=== PATIENT | female | born 1945 | race Caucasian/White ===

== ENCOUNTER → 2016-08-10 | Outpatient (REF) | payer MEDICARE, BC, OTHER ==
[~2016-08-10] MED LIST: AMLO5TAB2 PO; ASPI325T PO; LIPI20TA PO; LOSA25TA8 PO; MULTCAP PO; OMEP40CA2 PO; calcium OR; vicodin OR
== END ==
LOC: M LABDRAW1 14:44
PROVIDERS: ATTEND Internal Medicine Endocrinology, Diabetes & Metabolism
DX: M81.0 Age-related osteoporosis without current pathological fracture (principal)

== ENCOUNTER → 2016-09-10 | Outpatient (CLI) | payer MEDICARE, BC, OTHER ==
--- NOTE | 2016-09-10 11:26 | REP ---
Urinary tract sonography: History: Chronic kidney disease stage IV. Findings: Scanning at the level of the urinary bladder shows smooth bladder [place]. Renal cortical echogenicity pattern is increased bilaterally consistent with chronic medical renal disease. Bilateral renal cortical atrophy is seen. The right kidney measures 7.1 x 4.2 x 3.2 cm. Left renal dimensions are 8.3 x 4.1 x 3.7 cm. There is a 0.6 cm cyst in the upper pole of the left kidney. No other cyst is seen. No mass is observed. No hydronephrosis seen on either side. No calculus is seen. Impression: Increased renal cortical echogenicity and bilateral renal cortical atrophy. Findings are consistent with chronic medical renal disease. No hydronephrosis is seen. Renal length measurements have decreased in the interval since the October 30, 2010 prior study. Signed by Justin Garner MD 09/10/2016 12:56 P
== END ==
LOC: M RAD 10:34
PROVIDERS: ATTEND Internal Medicine Nephrology
DX: N18.4 Chronic kidney disease, stage 4 (severe) (principal)

== ENCOUNTER → 2017-08-23 | Outpatient (REF) | payer MEDICARE, BC, OTHER ==
[2017-08-25 12:02] LABS: CALCIUM LEVEL 8.4 MG/DL (8.8-10.2)
== END ==
LOC: M LABDRAW1 10:47
DX: M81.0 Age-related osteoporosis without current pathological fracture (principal)
CPT/HCPCS: 82310

== ENCOUNTER → 2017-09-03 | Outpatient (REF) | payer MEDICARE, BC, OTHER | LOC: M LABDRAW1 10:00 | DX: E83.51 Hypocalcemia (principal) | CPT/HCPCS: 82310 ==

== ENCOUNTER → 2017-09-12 | Outpatient (CLI) | payer MEDICARE, BC, OTHER | LOC: M WUC 09:51 | DX: J20.9 Acute bronchitis, unspecified (principal) | CPT/HCPCS: 71046 ==

== ENCOUNTER → 2017-09-15 | Outpatient (CLI) | payer MEDICARE, BC, OTHER | LOC: M WUC 11:29 | DX: M54.5 Low back pain (principal) | CPT/HCPCS: 72100 ==

== ENCOUNTER → 2018-10-03 | Outpatient (REF) | payer MEDICARE, BC, OTHER ==
[~2018-10-03] MED LIST changes: -AMLO5TAB2 PO; +AMLO5TAB6 PO; +ASPI-1 PO; -ASPI325T PO; +LOSA25TA14 PO; -LOSA25TA8 PO
[2018-10-03 14:17] LABS: CALCIUM LEVEL 9.4 MG/DL (8.8-10.2)
[2018-10-03 14:24] LABS: TOTAL 25(OH) VITAMIN D 36.8 NG/ML (30.0-100.0)
== END ==
LOC: M LABDRAW1 12:08
PROVIDERS: ATTEND Internal Medicine Endocrinology, Diabetes & Metabolism
DX: M81.0 Age-related osteoporosis without current pathological fracture (principal); E55.9 Vitamin D deficiency, unspecified

== ENCOUNTER → 2019-09-18 | Outpatient (REF) | payer MEDICARE, OTHER ==
[~2019-09-18] MED LIST changes: +AMLO1TAB24 PO; -AMLO5TAB6 PO; -OMEP40CA2 PO; +OMEP40CA97 PO
[2019-09-18 18:10] LABS: PERCENT SATURATION 32.4 % (13.2-45.0)
== END ==
LOC: M LAB REF 16:40
PROVIDERS: ATTEND Internal Medicine Nephrology
DX: D50.9 Iron deficiency anemia, unspecified (principal)

== ENCOUNTER → 2019-10-18 | Outpatient (REF) | payer MEDICARE, OTHER ==
[2019-10-18 15:05] LABS: CALCIUM LEVEL 9.1 MG/DL (8.8-10.2)
[2019-10-18 16:29] LABS: TOTAL 25(OH) VITAMIN D 32.4 NG/ML (30.0-100.0)
== END ==
LOC: M LABDRAWP 13:53
PROVIDERS: ATTEND Internal Medicine Endocrinology, Diabetes & Metabolism
DX: M81.0 Age-related osteoporosis without current pathological fracture (principal)

== ENCOUNTER → 2020-12-24 | Outpatient (CLI) | payer MEDICARE, BC, OTHER ==
[~2020-12-24] MED LIST changes: +OMEP40CA4 PO; -OMEP40CA97 PO
[2020-12-24 14:11] LABS: CALCIUM LEVEL 8.7 MG/DL (8.8-10.2)
[2020-12-24 14:27] LABS: TOTAL 25(OH) VITAMIN D 66.1 NG/ML (30.0-100.0)
== END ==
LOC: M PLALAB 10:56
PROVIDERS: ATTEND Internal Medicine Endocrinology, Diabetes & Metabolism
DX: M81.0 Age-related osteoporosis without current pathological fracture (principal); E55.9 Vitamin D deficiency, unspecified

== ENCOUNTER → 2021-01-10 | Outpatient (CLI) | payer MEDICARE, BC, OTHER | LOC: M LABSMTC 12:08 | PROVIDERS: ATTEND Internal Medicine Cardiovascular Disease | DX: Z11.52 Encounter for screening for COVID-19 (principal) ==

== ENCOUNTER → 2021-07-22 | Outpatient (REF) | payer MEDICARE, BC, OTHER ==
[~2021-07-22] MED LIST changes: +LOSA25TA13 PO; -LOSA25TA14 PO
[2021-07-22 17:12] LABS: PERCENT SATURATION 14.3 % (13.2-45.0)
== END ==
LOC: M LAB REF 16:39
PROVIDERS: ATTEND Internal Medicine Nephrology
DX: D50.9 Iron deficiency anemia, unspecified (principal)

== ENCOUNTER 2021-08-06 13:44 | Emergency (ER) | payer MEDICARE, BC, OTHER ==
[~2021-08-06] VITALS: Ht 142.2 cm; Wt 50.0 kg
[~2021-08-06 13:44] MED LIST changes: -TRAM50TA2 PO
[2021-08-06] MEDS ORDERED: ACETAMINOPHEN 500 MG TAB PO ONE (15:55)
[2021-08-06] MEDS ORDERED: TRAM50TA2 PO (19:09)
[2021-08-06] MEDS ORDERED: traMADol 50 MG TAB PO ONE (19:10)
[2021-08-06 19:20] VITALS: BP 160/65
== END 2021-08-06 19:32 | disposition home or self-care (01) ==
LOC: M ED 13:44 → EDBD 13:44 → M ED 19:32
DX: S00.03XA Contusion of scalp, initial encounter (principal); S62.642A Nondisplaced fracture of proximal phalanx of right middle finger, initial encounter for closed fracture; S62.644A Nondisplaced fracture of proximal phalanx of right ring finger, initial encounter for closed fracture; W01.198A Fall on same level from slipping, tripping and stumbling with subsequent striking against other object, initial encounter; Y92.410 Unspecified street and highway as the place of occurrence of the external cause; Y93.9 Activity, unspecified; Y99.9 Unspecified external cause status; I10 Essential (primary) hypertension; E78.5 Hyperlipidemia, unspecified; J45.909 Unspecified asthma, uncomplicated; M81.0 Age-related osteoporosis without current pathological fracture; E55.9 Vitamin D deficiency, unspecified; Z79.82 Long term (current) use of aspirin; Z79.899 Other long term (current) drug therapy

== ENCOUNTER → 2021-08-06 | Outpatient (CLI) | payer MEDICARE, BC, OTHER ==
[~2021-08-06] MED LIST changes: +TRAM50TA2 PO
== END ==
LOC: M WHC 10:34
PROVIDERS: ATTEND Internal Medicine Endocrinology, Diabetes & Metabolism
DX: M81.0 Age-related osteoporosis without current pathological fracture (principal); E55.9 Vitamin D deficiency, unspecified; Z79.899 Other long term (current) drug therapy

== ENCOUNTER 2021-08-11 11:07 | Inpatient (IN) | payer MEDICARE, BC, OTHER ==
[~2021-08-11] VITALS: Ht 147.3 cm; Wt 50.6 kg
[~2021-08-11 11:07] MED LIST changes: +TRAM50TA2 PO
[2021-08-11 13:03] LABS: BASO % 0.4 % (0.0-1.0); EOS # 0.3 10^3/uL (0.0-0.5); EOS % 3.1 % (0.0-3.0); HEMATOCRIT 32.9 % (36.0-47.0); HEMOGLOBIN 10.1 g/dl (12.0-15.5); LYMPH # 1.4 10^3/uL (1.5-5.0); LYMPH % 17.8 % (24.0-44.0); MEAN CORPUSCULAR HEMOGLOBIN 29.9 pg (27.0-33.0); MEAN CORPUSCULAR HGB CONC 30.7 g/dl (32.0-36.5); MEAN CORPUSCULAR VOLUME 97.3 fl (80.0-96.0); MONO # 0.8 10^3/uL (0.0-0.8); MONO % 9.8 % (2.0-8.0); NEUTROPHILS # 5.5 10^3/uL (1.5-8.5); NEUTROPHILS % 68.5 % (36.0-66.0); PLATELET COUNT, AUTOMATED 242 10^3/uL (150-450); RED BLOOD COUNT 3.38 10^6/uL (4.00-5.40)
[2021-08-11 13:19] LABS: INR 0.93; PROTHROMBIN TIME 12.9 SECONDS (12.7-14.5)
[2021-08-11 13:20] LABS: PARTIAL THROMBOPLASTIN TIME 29.4 SECONDS (25.9-37.0)
[2021-08-11 13:29] LABS: BILIRUBIN,TOTAL 0.6 MG/DL (0.2-1.0); CALCIUM LEVEL 9.8 MG/DL (8.8-10.2); CREATININE FOR GFR 1.97 MG/DL (0.55-1.30); GLOMERULAR FILTRATION RATE 26.2 (>39); POTASSIUM SERUM 4.9 MEQ/L (3.5-5.1); TOTAL PROTEIN 7.8 GM/DL (6.4-8.2)
[2021-08-11] MEDS ORDERED: SODI325T9 PO (14:23)
[2021-08-11] MEDS ORDERED: FAMO20TA PO (14:23)
[2021-08-11] MEDS ORDERED: HYDR-4514 PO (14:23)
[2021-08-11] MEDS ORDERED: CARV6.25 PO (14:23)
[2021-08-11] MEDS ORDERED: TRAM50TA2 PO (14:23)
[2021-08-11] MEDS ORDERED: ACET1TAB55 PO (14:23)
[2021-08-11] MEDS ORDERED: GABA-282 PO (14:23)
[2021-08-11] MEDS ORDERED: HOME MED LIST COMPLETE! XX SCH (14:25)
[2021-08-11] MEDS ORDERED: traMADol 50 MG TAB PO PRN (14:55)
[2021-08-11] MEDS ORDERED: traMADol 50 MG TAB PO ONE (15:45)
[2021-08-11 16:15] VITALS: BP 122/66
[2021-08-11] MEDS: SODIUM BICARBONATE 325 MG TAB PO SCH (20:36)
[2021-08-11] MEDS: FAMOTIDINE 20 MG TAB PO SCH (20:36)
[2021-08-11] MEDS: GABAPENTIN 300 MG CAP PO SCH (20:36)
[2021-08-11] MEDS: CARVedilol 6.25 MG TAB PO SCH (20:37)
[2021-08-11] MEDS ORDERED: ATORVASTATIN 20 MG TAB PO SCH (21:00)
[2021-08-11 22:00] VITALS: BP 127/66
[2021-08-12] MEDS: ANEXSIA, NORCO 7.5MG/325MG TABLET(HYDROCODONE/APAP) PO PRN ×3 (00:59→17:14)
[2021-08-12 05:59] LABS: HEMATOCRIT 31.3 % (36.0-47.0); HEMOGLOBIN 9.9 g/dl (12.0-15.5); MEAN CORPUSCULAR HEMOGLOBIN 30.7 pg (27.0-33.0); MEAN CORPUSCULAR HGB CONC 31.6 g/dl (32.0-36.5); MEAN CORPUSCULAR VOLUME 96.9 fl (80.0-96.0); PLATELET COUNT, AUTOMATED 149 10^3/uL (150-450); RED BLOOD COUNT 3.23 10^6/uL (4.00-5.40); WHITE BLOOD COUNT 5.9 10^3/uL (4.0-10.0)
[2021-08-12 06:00] VITALS: BP 122/55
[2021-08-12 06:30] LABS: CALCIUM LEVEL 8.6 MG/DL (8.8-10.2); CREATININE FOR GFR 1.89 MG/DL (0.55-1.30); GLOMERULAR FILTRATION RATE 27.5 (>39); POTASSIUM SERUM 5.4 MEQ/L (3.5-5.1)
[2021-08-12] MEDS ORDERED: LOSARTAN 25 MG TAB PO SCH (09:00)
[2021-08-12] MEDS: SODIUM BICARBONATE 325 MG TAB PO SCH ×2 (09:27→20:20)
[2021-08-12] MEDS: FAMOTIDINE 20 MG TAB PO SCH ×2 (09:27→20:20)
[2021-08-12] MEDS: CARVedilol 6.25 MG TAB PO SCH ×2 (09:28→20:24)
[2021-08-12] MEDS: GABAPENTIN 300 MG CAP PO SCH ×2 (09:29→20:20)
[2021-08-12] MEDS: amLODIPine 5 MG TAB PO SCH (09:29)
[2021-08-12 14:30] VITALS: BP 90/59
[2021-08-12 14:48] VITALS: BP 110/58
[2021-08-12 20:00] VITALS: BP 137/55
[2021-08-13 05:27] VITALS: BP 139/57
[2021-08-13 06:04] LABS: HEMOGLOBIN 10.5 g/dl (12.0-15.5); MEAN CORPUSCULAR HEMOGLOBIN 30.7 pg (27.0-33.0); MEAN CORPUSCULAR HGB CONC 31.8 g/dl (32.0-36.5); MEAN CORPUSCULAR VOLUME 96.5 fl (80.0-96.0); PLATELET COUNT, AUTOMATED 240 10^3/uL (150-450); RED BLOOD COUNT 3.42 10^6/uL (4.00-5.40); WHITE BLOOD COUNT 6.2 10^3/uL (4.0-10.0)
[2021-08-13 06:31] LABS: CALCIUM LEVEL 8.7 MG/DL (8.8-10.2); CREATININE FOR GFR 1.84 MG/DL (0.55-1.30); GLOMERULAR FILTRATION RATE 28.3 (>39); POTASSIUM SERUM 4.6 MEQ/L (3.5-5.1)
[2021-08-13 07:19] VITALS: BP 136/59
[2021-08-13] MEDS: FAMOTIDINE 20 MG TAB PO SCH (07:19)
[2021-08-13] MEDS: amLODIPine 5 MG TAB PO SCH (07:19)
[2021-08-13] MEDS: SODIUM BICARBONATE 325 MG TAB PO SCH (07:19)
[2021-08-13] MEDS: CARVedilol 6.25 MG TAB PO SCH (07:19)
[2021-08-13] MEDS: GABAPENTIN 300 MG CAP PO SCH (07:20)
[2021-08-13] MEDS: ANEXSIA, NORCO 7.5MG/325MG TABLET(HYDROCODONE/APAP) PO PRN (07:24)
[2021-08-13] MEDS ORDERED: LIDOCAINE 2% 100MG/5ML SDV (FOR ANES.) As Ordered ONE (09:34)
[2021-08-13] MEDS ORDERED: propofoL 200 MG/20 ML VIAL As Ordered ONE (09:34)
[2021-08-13] MEDS ORDERED: MIDAZOLAM INJ 2MG/2ML VIAL (J2250 PER 1MG) As Ordered ONE (09:34)
[2021-08-13] MEDS ORDERED: fentaNYL 100 MCG/2 ML INJECTION As Ordered ONE (09:35)
[2021-08-13] MEDS ORDERED: dexameTHASONE 4 MG/ML 1ML VIAL (J1100 PER 1MG) As Ordered ONE (09:36)
[2021-08-13] MEDS ORDERED: ONDANSETRON 4MG/2ML VIAL As Ordered ONE (09:36)
[2021-08-13] MEDS ORDERED: KETOROLAC 60MG 2ML VIAL As Ordered ONE (09:46)
[2021-08-13] MEDS ORDERED: propofoL 500 MG/50 ML VIAL As Ordered ONE (10:30)
[2021-08-13] MEDS ORDERED: BUPIVACAINE HCL 0.25% 30ML VIAL As Ordered ONE (10:35)
[2021-08-13] MEDS ORDERED: BACITRACIN OINTMENT 30GM TUBE As Ordered ONE (10:35)
[2021-08-13] MEDS ORDERED: ceFAZolin 2 GM/D5W 50 ML IV BAG (J0690 PER 500MG) As Ordered ONE (10:53)
[2021-08-13] MEDS ORDERED: VASOPRESSIN INJ 20 UNITS/ML VIAL As Ordered ONE (11:11)
[2021-08-13] MEDS ORDERED: ACETAMINOPHEN 1000MG 100ML IV BTL (OFIRMEV) (J0131 PER 10MG) As Ordered ONE (12:13)
[2021-08-13] MEDS ORDERED: fentaNYL 100 MCG/2 ML INJECTION IV PRN ×2 (12:40→13:10)
[2021-08-13] MEDS ORDERED: LR 1,000 ML IV SCH ×2 (12:40→13:10)
[2021-08-13] MEDS ORDERED: ONDANSETRON 4MG/2ML VIAL IV PRN ×2 (12:40→13:10)
[2021-08-13] MEDS ORDERED: oxyCODONE 5MG TAB PO PRN ×3 (12:40→13:10)
[2021-08-13] MEDS ORDERED: MORPHINE 2 MG/ML 1ML VIAL IV PRN ×2 (12:40→13:10)
[2021-08-13] MEDS ORDERED: METOCLOPRAMIDE INJ 10MG/2ML VIAL (J2765 PER 1) IV PRN (12:40)
[2021-08-13] MEDS ORDERED: ACETAMINOPHEN TAB 650MG DOSE (2X325MG) PO PRN (13:00)
[2021-08-13] MEDS ORDERED: ALBUTEROL SULFATE 2.5 MG/0.5 ML INH NEB SOLN INH ONE (13:10)
[2021-08-13] MEDS ORDERED: PHENYLephrine 500MCG 5ML (100MCG/ML) SYRINGE As Ordered ONE (13:13)
[2021-08-13 13:45] VITALS: BP 137/61
[2021-08-13 15:00] VITALS: BP 145/63
[2021-08-13] MEDS ORDERED: PERC5TAB12 PO (15:48)
[2021-08-13] MEDS ORDERED: ceFAZolin SOD 1 GM in D5W MINI-BAG PLUS 50 ML IV SCH (19:00)
== END 2021-08-13 16:40 | disposition home or self-care (01) | DRG 513 ==
LOC: M ED 11:07 → M ED INP 12:08 → ENRESERV 14:39 → M MS5PR 16:05
PROVIDERS: ADMIT General Practice; ATTEND Internal Medicine Nephrology
PROC: 0PSP04Z Reposition Right Metacarpal with Internal Fixation Device, Open Approach (ICD-10-PCS; 2021-08-13)
PROC: 0PSP34Z Reposition Right Metacarpal with Internal Fixation Device, Percutaneous Approach (ICD-10-PCS; principal; 2021-08-13 10:00)
DX: S62.612A Displaced fracture of proximal phalanx of right middle finger, initial encounter for closed fracture (principal); N18.4 Chronic kidney disease, stage 4 (severe); I50.32 Chronic diastolic (congestive) heart failure; I13.0 Hypertensive heart and chronic kidney disease with heart failure and stage 1 through stage 4 chronic kidney disease, or unspecified chronic kidney disease; S62.614A Displaced fracture of proximal phalanx of right ring finger, initial encounter for closed fracture; R56.9 Unspecified convulsions; E78.00 Pure hypercholesterolemia, unspecified; I27.20 Pulmonary hypertension, unspecified; J45.909 Unspecified asthma, uncomplicated; K21.9 Gastro-esophageal reflux disease without esophagitis; M47.816 Spondylosis without myelopathy or radiculopathy, lumbar region; G62.9 Polyneuropathy, unspecified; M54.50 Low back pain, unspecified; F10.21 Alcohol dependence, in remission; D63.1 Anemia in chronic kidney disease; I08.1 Rheumatic disorders of both mitral and tricuspid valves; J44.9 Chronic obstructive pulmonary disease, unspecified; K27.9 Peptic ulcer, site unspecified, unspecified as acute or chronic, without hemorrhage or perforation; Z98.1 Arthrodesis status; Z90.49 Acquired absence of other specified parts of digestive tract; Z98.49 Cataract extraction status, unspecified eye; Z85.820 Personal history of malignant melanoma of skin; Z87.891 Personal history of nicotine dependence; Z79.899 Other long term (current) drug therapy; M54.81 Occipital neuralgia

== ENCOUNTER → 2021-08-22 | Outpatient (CLI) | payer MEDICARE, BC, OTHER ==
[~2021-08-22] MED LIST changes: +ACET1TAB55 PO; +CARV6.25 PO; +FAMO20TA PO; +GABA-282 PO; +HYDR-4514 PO; +PERC5TAB12 PO; +SODI325T9 PO
== END ==
LOC: M SOG 07:58
PROVIDERS: ATTEND Orthopaedic Surgery Hand Surgery
DX: S62.612A Displaced fracture of proximal phalanx of right middle finger, initial encounter for closed fracture (principal); S62.614A Displaced fracture of proximal phalanx of right ring finger, initial encounter for closed fracture

== ENCOUNTER → 2021-09-19 | Outpatient (CLI) | payer MEDICARE, BC, OTHER | LOC: M SOG 15:38 | PROVIDERS: ATTEND Orthopaedic Surgery Hand Surgery | DX: Z47.89 Encounter for other orthopedic aftercare (principal) ==

== ENCOUNTER → 2021-10-16 | Outpatient (CLI) | payer MEDICARE, BC, OTHER | LOC: M SOG 09:12 | PROVIDERS: ATTEND Orthopaedic Surgery Hand Surgery | DX: Z47.89 Encounter for other orthopedic aftercare (principal) ==

== ENCOUNTER → 2021-12-29 | Outpatient (CLI) | payer MEDICARE, BC, OTHER | LOC: M PLALAB 09:01 | PROVIDERS: ATTEND Internal Medicine Endocrinology, Diabetes & Metabolism | DX: M81.0 Age-related osteoporosis without current pathological fracture (principal) ==

== ENCOUNTER → 2022-08-04 | Outpatient (CLI) | payer MEDICARE, BC, OTHER ==
[2022-08-04 14:15] LABS: CALCIUM LEVEL 9.9 MG/DL (8.3-10.6)
[2022-08-04 14:20] LABS: TOTAL 25(OH) VITAMIN D 78.2 NG/ML (20.0-100.0)
== END ==
LOC: M PLALAB 08:52
PROVIDERS: ATTEND Internal Medicine Endocrinology, Diabetes & Metabolism
DX: M81.0 Age-related osteoporosis without current pathological fracture (principal)

== ENCOUNTER → 2022-08-10 | Outpatient (CLI) | payer MEDICARE, BC, OTHER | LOC: M RAD 15:08 | PROVIDERS: ATTEND Surgery Vascular Surgery | DX: N18.4 Chronic kidney disease, stage 4 (severe) (principal); I73.9 Peripheral vascular disease, unspecified ==

== ENCOUNTER → 2022-11-04 | Outpatient (REF) | payer MEDICARE, BC, OTHER ==
[2022-11-04 19:14] LABS: PERCENT SATURATION 16.2 % (13.2-45.0)
== END ==
LOC: M LAB REF 17:31
PROVIDERS: ATTEND Internal Medicine Nephrology
DX: D50.9 Iron deficiency anemia, unspecified (principal)

== ENCOUNTER → 2022-12-17 | Outpatient (REF) | payer MEDICARE, BC, OTHER | LOC: M LAB REF 17:12 | PROVIDERS: ATTEND Internal Medicine Nephrology | DX: D50.9 Iron deficiency anemia, unspecified (principal) ==

== ENCOUNTER → 2023-07-29 | Outpatient (CLI) | payer MEDICARE, BC, OTHER | LOC: M LAB 13:38 | PROVIDERS: ATTEND Internal Medicine Endocrinology, Diabetes & Metabolism | DX: M81.0 Age-related osteoporosis without current pathological fracture (principal) ==

== ENCOUNTER 2024-04-13 14:10 | Inpatient (IN) | payer MEDICARE, BC, OTHER ==
[~2024-04-13] VITALS: Ht 147.3 cm; Wt 53.0 kg
[~2024-04-13 14:10] MED LIST changes: +GABA-1172 PO; -GABA-282 PO
[2024-04-13 15:28] LABS: BASO % 0.5 % (0.0-1.0); EOS # 0.1 10^3/uL (0.0-0.5); EOS % 0.8 % (0.0-3.0); HEMATOCRIT 33.2 % (36.0-47.0); HEMOGLOBIN 10.6 g/dl (12.0-15.5); LYMPH # 1.4 10^3/uL (1.5-5.0); LYMPH % 17.1 % (24.0-44.0); MEAN CORPUSCULAR HEMOGLOBIN 30.7 pg (27.0-33.0); MEAN CORPUSCULAR HGB CONC 31.9 g/dl (32.0-36.5); MEAN CORPUSCULAR VOLUME 96.2 fl (80.0-96.0); MONO # 0.7 10^3/uL (0.0-0.8); MONO % 7.9 % (2.0-8.0); NEUTROPHILS # 6.1 10^3/uL (1.5-8.5); NEUTROPHILS % 73.3 % (36.0-66.0); PLATELET COUNT, AUTOMATED 255 10^3/uL (150-450); RED BLOOD COUNT 3.45 10^6/uL (4.00-5.40); WHITE BLOOD COUNT 8.3 10^3/uL (4.0-10.0)
[2024-04-13 15:50] LABS: INR 0.99; PROTHROMBIN TIME 13.4 SECONDS (12.5-14.5)
[2024-04-13 16:01] LABS: BILIRUBIN,DIRECT 0.1 MG/DL (<0.4); BILIRUBIN,TOTAL 0.4 MG/DL (0.3-1.2); CALCIUM LEVEL 10.6 MG/DL (8.3-10.6); CREATININE FOR GFR 3.12 MG/DL (0.55-1.30); GLOMERULAR FILTRATION RATE 15.3 (>32); POTASSIUM SERUM 3.9 MMOL/L (3.5-5.1); TOTAL PROTEIN 7.5 G/DL (5.7-8.2)
[2024-04-13 16:56] LABS: APPEARANCE, CSF CLEAR (CLEAR); COLOR, CSF COLORLESS (COLORLESS); CSF TUBE# CELL CNT TUBE 1
[2024-04-13 17:37] LABS: CSF TUBE# TP TUBE 3; TOTAL PROTEIN,CSF 51.2 MG/DL (15-45)
[2024-04-13 17:39] LABS: CSF TUBE# GLU TUBE 3
[2024-04-13] MEDS ORDERED: NORT25CA2 PO (17:42)
[2024-04-13] MEDS ORDERED: BREO1INH INH (17:42)
[2024-04-13] MEDS ORDERED: GABA-1171 PO (17:42)
[2024-04-13] MEDS ORDERED: MECL-86 PO (17:42)
[2024-04-13] MEDS ORDERED: PRES1CAP PO (17:43)
[2024-04-13] MEDS ORDERED: [UNRECOGNIZED DRUG - CODE] PO (17:44)
[2024-04-13] MEDS ORDERED: HOME MED LIST COMPLETE! XX SCH (17:45)
[2024-04-13] MEDS ORDERED: IMMUNE GLOBULIN 10% 0 GM in IV 1 EA IV SCH (19:45)
[2024-04-13] MEDS ORDERED: MECLIZINE 25 MG TABLET PO PRN (20:05)
[2024-04-13] MEDS: SODIUM BICARBONATE 325 MG TAB PO SCH (21:21)
[2024-04-13] MEDS: FAMOTIDINE 20 MG TAB PO SCH (21:21)
[2024-04-13] MEDS: NORTRIPTYLINE 25 MG CAP PO SCH (21:21)
[2024-04-13] MEDS: GABAPENTIN 100 MG CAP PO SCH (21:21)
[2024-04-13] MEDS: IMMUNE GLOBULIN 10% 20 GM in IV 1 EA IV SCH (21:30)
[2024-04-14] VITALS (7 sets, daily range): BP systolic 128–169; BP diastolic 65–89; TEMP 97.2–98.5; O2SAT 95–98
[2024-04-14] MEDS: ACETAMINOPHEN 325 MG TAB PO PRN (05:15)
[2024-04-14 06:27] LABS: HEMATOCRIT 34.4 % (36.0-47.0); MEAN CORPUSCULAR HEMOGLOBIN 30.3 pg (27.0-33.0); MEAN CORPUSCULAR VOLUME 94.8 fl (80.0-96.0); PLATELET COUNT, AUTOMATED 245 10^3/uL (150-450); RED BLOOD COUNT 3.63 10^6/uL (4.00-5.40); WHITE BLOOD COUNT 7.8 10^3/uL (4.0-10.0)
[2024-04-14 06:58] LABS: HEPATITIS B SURFACE ANTIBODY POSITIVE (POSITIVE)
[2024-04-14 07:10] LABS: HEPATITIS B SURFACE ANTIGEN NEGATIVE (NEGATIVE)
[2024-04-14 07:30] LABS: HEPATITIS B CORE ANTIBODY IGM NEGATIVE (NEGATIVE); HEPATITIS C VIRUS ABY INDEX 0.16 INDEX (<0.8)
[2024-04-14 07:38] LABS: ALBUMIN 3.6 G/DL (3.2-5.2); ALKALINE PHOSPHATASE 83 U/L (35-104); ALT/SGPT < 9 U/L (7.0-40); AST/SGOT 13 U/L (<34); BILIRUBIN,TOTAL 0.8 MG/DL (0.3-1.2); BLOOD UREA NITROGEN 33 MG/DL (9-23); CALCIUM LEVEL 10.7 MG/DL (8.3-10.6); CARBON DIOXIDE LEVEL 25 MMOL/L (20-31); CHLORIDE LEVEL 101 MMOL/L (98-107); CREATININE FOR GFR 2.74 MG/DL (0.55-1.30); GLOMERULAR FILTRATION RATE 17.7 (>32); GLUCOSE, FASTING 100 MG/DL (74-106); POTASSIUM SERUM 4.2 MMOL/L (3.5-5.1); SODIUM LEVEL 141 MMOL/L (136-145); TOTAL PROTEIN 7.9 G/DL (5.7-8.2)
[2024-04-14] MEDS ORDERED: HEPARIN 1,000UNITS/ML 10ML VIAL (FOR RADIOLOGY & DIALYSIS ONLY) IV PRN (10:30)
[2024-04-14] MEDS ORDERED: SODIUM CHLORIDE 0.9% 1000 ML IV PRN (10:30)
[2024-04-14] MEDS ORDERED: HEPARIN 1,000UNITS/ML 10ML VIAL (FOR RADIOLOGY & DIALYSIS ONLY) XX SCH (10:30)
[2024-04-14] MEDS ORDERED: LIDOCAINE 1% SDV 5ML VIAL SC PRN (10:30)
[2024-04-14] MEDS ORDERED: PROHANCE 279.3MG/ML 15ML VIAL As Ordered ONE (14:21)
[2024-04-15] VITALS (12 sets, daily range): BP systolic 137–169; BP diastolic 65–81; TEMP 97–98.2; O2SAT 93–98
[2024-04-16] VITALS (13 sets, daily range): BP systolic 132–180; BP diastolic 68–84; TEMP 97.5–98.6; O2SAT 91–96
[2024-04-16 06:49] LABS: ALBUMIN 3.1 G/DL (3.2-5.2); CREATININE FOR GFR 2.98 MG/DL (0.55-1.30); GLOMERULAR FILTRATION RATE 16.1 (>32); PHOSPHORUS LEVEL 3.7 MG/DL (2.4-5.1); POTASSIUM SERUM 4.8 MMOL/L (3.5-5.1)
[2024-04-16 06:51] LABS: TOTAL 25(OH) VITAMIN D 48.7 NG/ML (20.0-100.0)
[2024-04-16 07:23] LABS: PTH INTACT 27.7 PG/ML (18.5-88.0)
[2024-04-16] MEDS: FAMOTIDINE 20 MG TAB PO SCH (07:44)
[2024-04-17 00:01] VITALS: BP 162/78; TEMP 97.9; O2SAT 97
[2024-04-17 00:31] VITALS: BP 180/60; TEMP 97.9; O2SAT 98
[2024-04-17 01:11] VITALS: BP 150/90
[2024-04-17 04:00] VITALS: TEMP 97.5; O2SAT 95
[2024-04-17 07:55] VITALS: BP 166/77; TEMP 97.5; O2SAT 97
[2024-04-17 12:12] VITALS: BP 149/70; TEMP 97.8; O2SAT 99
== END 2024-04-17 15:02 | DRG 95 ==
LOC: M ED 14:10 → M ED INP 18:22 → M PCU 04-14 16:17
PROVIDERS: ADMIT Student in an Organized Health Care Education/Training Program; ATTEND Student in an Organized Health Care Education/Training Program
PROC: 009U3ZX Drainage of Spinal Canal, Percutaneous Approach, Diagnostic (ICD-10-PCS; principal; 2024-04-13 16:14)
DX: G61.0 Guillain-Barre syndrome (principal); I50.32 Chronic diastolic (congestive) heart failure; I13.0 Hypertensive heart and chronic kidney disease with heart failure and stage 1 through stage 4 chronic kidney disease, or unspecified chronic kidney disease; N18.4 Chronic kidney disease, stage 4 (severe); I27.20 Pulmonary hypertension, unspecified; I36.1 Nonrheumatic tricuspid (valve) insufficiency; J44.9 Chronic obstructive pulmonary disease, unspecified; E78.5 Hyperlipidemia, unspecified; R13.10 Dysphagia, unspecified; J45.909 Unspecified asthma, uncomplicated; K21.9 Gastro-esophageal reflux disease without esophagitis; M81.0 Age-related osteoporosis without current pathological fracture; M54.50 Low back pain, unspecified; F10.21 Alcohol dependence, in remission; G89.29 Other chronic pain; D63.1 Anemia in chronic kidney disease; Z98.1 Arthrodesis status; Z90.49 Acquired absence of other specified parts of digestive tract; Z85.820 Personal history of malignant melanoma of skin; Z98.41 Cataract extraction status, right eye; Z98.42 Cataract extraction status, left eye; Z87.891 Personal history of nicotine dependence; Z79.899 Other long term (current) drug therapy; M47.816 Spondylosis without myelopathy or radiculopathy, lumbar region

== ENCOUNTER 2024-04-17 14:04 | Inpatient (IN) | payer MEDICARE, BC, OTHER ==
[~2024-04-17] VITALS: Ht 147.3 cm; Wt 51.8 kg
[~2024-04-17 14:04] MED LIST changes: +BREO1INH INH; +GABA-1171 PO; +MECL-86 PO; +NORT25CA2 PO; +PRES1CAP PO; +[UNRECOGNIZED DRUG - CODE] PO
[2024-04-17 15:03] VITALS: BP 134/80; TEMP 97.2; O2SAT 100
[2024-04-17] MEDS ORDERED: BISACODYL 5MG TAB PO PRN (15:50)
[2024-04-17] MEDS ORDERED: BISACODYL 10MG SUPP PR PRN (15:50)
[2024-04-17] MEDS ORDERED: MOM 30ML SUSPENSION UDC PO PRN (15:50)
[2024-04-17] MEDS ORDERED: IPRATROPIUM 0.5MG/ALBUTEROL 2.5MG INH SOL UD 3ML (DUONEB) NEB PRN (15:50)
[2024-04-17] MEDS ORDERED: ONDANSETRON 4MG ORAL DISINTEGRATING TAB PO PRN (16:00)
[2024-04-17 20:09] VITALS: BP 159/72; TEMP 98.9; O2SAT 97
[2024-04-17] MEDS: DOCUSATE SODIUM 100MG CAPSULE PO SCH (21:00)
[2024-04-17] MEDS: SENNA 8.6 MG TAB (SENOKOT) PO SCH (21:00)
[2024-04-17] MEDS: IMMUNE GLOBULIN 10% 20 GM in IV 1 EA IV SCH (21:31)
[2024-04-17] MEDS: GABAPENTIN 100 MG CAP PO SCH (21:32)
[2024-04-17] MEDS: SODIUM BICARBONATE 325 MG TAB PO SCH (21:33)
[2024-04-17] MEDS: FAMOTIDINE 20 MG TAB PO SCH (21:33)
[2024-04-17] MEDS: NORTRIPTYLINE 25 MG CAP PO SCH (21:33)
[2024-04-17] MEDS: HEPARIN SOD (PORCINE) 5000UNITS/ML 1ML VIAL/SYRINGE SC SCH (21:34)
[2024-04-18 04:18] VITALS: BP 126/62; TEMP 97; O2SAT 96
[2024-04-18 06:57] LABS: BASO % 0.4 % (0.0-1.0); EOS # 0.1 10^3/uL (0.0-0.5); EOS % 1.3 % (0.0-3.0); HEMATOCRIT 32.9 % (36.0-47.0); HEMOGLOBIN 10.8 g/dl (12.0-15.5); LYMPH # 0.7 10^3/uL (1.5-5.0); LYMPH % 13.5 % (24.0-44.0); MEAN CORPUSCULAR HGB CONC 32.8 g/dl (32.0-36.5); MEAN CORPUSCULAR VOLUME 97.6 fl (80.0-96.0); MONO # 0.5 10^3/uL (0.0-0.8); MONO % 9.6 % (2.0-8.0); NEUTROPHILS % 74.6 % (36.0-66.0); PLATELET COUNT, AUTOMATED 217 10^3/uL (150-450); RED BLOOD COUNT 3.37 10^6/uL (4.00-5.40); WHITE BLOOD COUNT 5.3 10^3/uL (4.0-10.0)
[2024-04-18 07:20] LABS: BILIRUBIN,TOTAL 0.7 MG/DL (0.3-1.2); CREATININE FOR GFR 2.77 MG/DL (0.55-1.30); GLOMERULAR FILTRATION RATE 17.5 (>32); POTASSIUM SERUM 4.3 MMOL/L (3.5-5.1); TOTAL PROTEIN 9.2 G/DL (5.7-8.2)
[2024-04-18] MEDS: PRENATAL VITAMINS CHEWABLE TABLET PO SCH (07:39)
[2024-04-18] MEDS: ACETAMINOPHEN 325 MG TAB PO PRN (10:51)
[2024-04-18 12:00] VITALS: BP 156/67; TEMP 98; O2SAT 100
[2024-04-18 16:29] LABS: BASO % 0.6 % (0.0-1.0); EOS # 0.1 10^3/uL (0.0-0.5); EOS % 0.8 % (0.0-3.0); HEMATOCRIT 32.4 % (36.0-47.0); HEMOGLOBIN 10.5 g/dl (12.0-15.5); LYMPH # 0.9 10^3/uL (1.5-5.0); LYMPH % 13.5 % (24.0-44.0); MEAN CORPUSCULAR HGB CONC 32.4 g/dl (32.0-36.5); MEAN CORPUSCULAR VOLUME 95.6 fl (80.0-96.0); MONO # 0.7 10^3/uL (0.0-0.8); NEUTROPHILS # 4.9 10^3/uL (1.5-8.5); NEUTROPHILS % 74.6 % (36.0-66.0); PLATELET COUNT, AUTOMATED 236 10^3/uL (150-450); RED BLOOD COUNT 3.39 10^6/uL (4.00-5.40); WHITE BLOOD COUNT 6.5 10^3/uL (4.0-10.0)
[2024-04-18 19:55] VITALS: BP 137/62; TEMP 96.1; O2SAT 97
[2024-04-18 20:10] VITALS: BP 137/62; TEMP 97.7; O2SAT 97
[2024-04-19 04:00] VITALS: BP 176/77; TEMP 96.7
[2024-04-19 05:54] VITALS: BP 134/68; TEMP 97.3; O2SAT 94
[2024-04-19] MEDS ORDERED: VARIBAR NECTAR 40% w/v 240ML SUSP BTL As Ordered ONE (08:50)
[2024-04-19] MEDS ORDERED: VARIBAR PUDDING 40% w/v 230ML TUBE As Ordered ONE (08:50)
[2024-04-19] MEDS ORDERED: E-Z-PAQUE 96% w/w SUSP 176GM BTL As Ordered ONE (08:50)
[2024-04-19] MEDS ORDERED: BARIUM SULFATE 700 MG TABLET (E-Z-DISK) As Ordered ONE (08:51)
[2024-04-19 12:00] VITALS: BP 140/71; TEMP 96.8; O2SAT 100
[2024-04-19 13:47] LABS: KETONE, URINE AUTO RFX NEGATIVE (NEGATIVE); LEUKOCYTE ESTERASE UR AUTO RFX 3+ (NEGATIVE); MUCUS, URINE RFX SMALL (NEGATIVE); NITRITE, URINE AUTO RFX NEGATIVE (NEGATIVE); RBC, URINE AUTO RFX 8 /HPF (0-3); SQUAM EPITHELIAL CELL UR AURFX 5 /HPF (0-6); TRANSITIONAL EPITHELIAL AU RFX 1 /HPF; WBC, URINE AUTO RFX TNTC /HPF (0-3)
[2024-04-19 20:00] VITALS: BP 150/66; TEMP 98.1; O2SAT 95
[2024-04-19] MEDS: LevoFLOXacin 500 MG TABLET PO ONE (20:08)
[2024-04-20 04:00] VITALS: BP 123/56; TEMP 97.8; O2SAT 96
[2024-04-20 12:15] VITALS: BP 172/78; TEMP 97; O2SAT 99
[2024-04-20] MEDS: **hydrALAZINE HCL** 25 MG TAB PO PRN (12:27)
[2024-04-20 20:00] VITALS: BP 170/70; TEMP 97.5; O2SAT 99
[2024-04-20 20:30] VITALS: BP 150/68
[2024-04-21 04:00] VITALS: BP 122/55; TEMP 98; O2SAT 98
[2024-04-21] MEDS: LevoFLOXacin 250 MG TABLET PO SCH (05:42)
[2024-04-21 12:36] VITALS: BP 140/65; TEMP 97.8; O2SAT 98
[2024-04-21 20:25] VITALS: BP 168/75; TEMP 98.4; O2SAT 95
[2024-04-21 20:27] VITALS: BP 146/64
[2024-04-22 04:27] VITALS: BP 165/76; TEMP 96.9; O2SAT 97
[2024-04-22 04:32] VITALS: BP 160/60
[2024-04-22] MEDS: MECLIZINE 25 MG TABLET PO PRN (08:18)
[2024-04-22 08:20] VITALS: BP 104/65
[2024-04-22 08:58] VITALS: BP 136/58
[2024-04-22 12:00] VITALS: BP 135/60; TEMP 97.3; O2SAT 99
[2024-04-22 20:06] VITALS: BP 169/75; TEMP 98.6; O2SAT 96
[2024-04-23 04:00] VITALS: BP 128/59; TEMP 97.4; O2SAT 95
[2024-04-23 12:00] VITALS: BP 142/66; TEMP 97.6; O2SAT 99
[2024-04-23 20:30] VITALS: BP 158/60; TEMP 98.7; O2SAT 97
[2024-04-23 20:56] VITALS: BP 158/60
[2024-04-24 05:05] VITALS: BP 133/60; TEMP 98.6; O2SAT 96
[2024-04-24] MEDS: SODIUM CHLORIDE 0.9% NASAL GEL 15GM (AYR) SCH (09:00)
[2024-04-24 12:00] VITALS: BP 133/64; TEMP 97.6; O2SAT 94
[2024-04-24] MEDS: OXYMETAZOLINE 0.05% NASAL SPRAY PRN (14:41)
[2024-04-24] MEDS: CARBAMIDE PEROXIDE 6.5% OTIC SOLN 15ML AS ONE (14:41)
[2024-04-24] MEDS: SODIUM CHLORIDE NASAL 0.65% SPRAY BTL (OCEAN) SCH (14:42)
[2024-04-24] MEDS: OXYMETAZOLINE 0.05% NASAL SPRAY ONE (14:54)
[2024-04-24 20:04] VITALS: BP 146/64; TEMP 98.1; O2SAT 96
[2024-04-24] MEDS: MAALOX 30 ML SUSP *UDC PO PRN (20:30)
[2024-04-24] MEDS: CARBAMIDE PEROXIDE 6.5% OTIC SOLN 15ML AS SCH (20:31)
[2024-04-24] MEDS: SIMETHICONE 80MG CHEW TAB PO PRN (20:31)
[2024-04-25 04:00] VITALS: BP_SYST 141; BP_DIAS 64; BP_DIAS 80; TEMP 98; O2SAT 99
[2024-04-25 12:00] VITALS: BP 166/72; TEMP 96.9; O2SAT 96
[2024-04-25 15:24] VITALS: BP 137/65
[2024-04-25 20:00] VITALS: BP 148/66; TEMP 97.7; O2SAT 98
[2024-04-26 04:05] VITALS: BP 128/64; TEMP 97.8; O2SAT 98
[2024-04-26 12:00] VITALS: BP 140/70; TEMP 97.3; O2SAT 96
[2024-04-26] MEDS: CALCIUM CARBONATE 500 MG CHEW U/D PO ONE (12:26)
[2024-04-26] MEDS: IPRATROPIUM 0.5MG/ALBUTEROL 2.5MG INH SOL UD 3ML (DUONEB) NEB ONE (13:30)
[2024-04-26] MEDS ORDERED: COLA100C5 PO (15:21)
[2024-04-26] MEDS ORDERED: VENTAER INH (15:21)
[2024-04-26] MEDS ORDERED: CALC200T15 PO (15:21)
[2024-04-26] MEDS ORDERED: SENO8.6T5 PO (15:22)
[2024-04-26] MEDS ORDERED: OXYM05SP (15:22)
[2024-04-26] MEDS ORDERED: Sodium Chloride Nasal Spray (15:22)
[2024-04-26] MEDS ORDERED: SODIGEL (15:22)
[2024-04-26] MEDS ORDERED: HYDR25TA87 PO (15:27)
[2024-04-26 20:00] VITALS: BP 154/72; TEMP 98.2; O2SAT 99
[2024-04-27 04:00] VITALS: BP 144/64; TEMP 97.9; O2SAT 97
[2024-04-27] MEDS: IPRATROPIUM 0.5MG/ALBUTEROL 2.5MG INH SOL UD 3ML (DUONEB) NEB SCH (07:18)
[2024-04-27] MEDS: CALCIUM CARBONATE 500 MG CHEW U/D PO PRN (11:59)
[2024-04-27 12:00] VITALS: BP 149/70; TEMP 97.3; O2SAT 100
[2024-04-27 14:28] LABS: BASO % 0.3 % (0.0-1.0); EOS # 0.1 10^3/uL (0.0-0.5); EOS % 0.7 % (0.0-3.0); HEMATOCRIT 28.4 % (36.0-47.0); HEMOGLOBIN 9.3 g/dl (12.0-15.5); LYMPH # 1.3 10^3/uL (1.5-5.0); LYMPH % 12.9 % (24.0-44.0); MEAN CORPUSCULAR HGB CONC 32.7 g/dl (32.0-36.5); MEAN CORPUSCULAR VOLUME 97.6 fl (80.0-96.0); MONO # 1.1 10^3/uL (0.0-0.8); MONO % 10.8 % (2.0-8.0); NEUTROPHILS # 7.4 10^3/uL (1.5-8.5); NEUTROPHILS % 74.3 % (36.0-66.0); PLATELET COUNT, AUTOMATED 270 10^3/uL (150-450); RED BLOOD COUNT 2.91 10^6/uL (4.00-5.40)
[2024-04-27 14:50] LABS: CALCIUM LEVEL 10.5 MG/DL (8.3-10.6); CREATININE FOR GFR 2.99 MG/DL (0.55-1.30)
[2024-04-27] MEDS: LACTOBACILLUS ACIDOPHILUS CAP (BACID) PO SCH (18:11)
[2024-04-27 19:53] VITALS: BP 142/87; TEMP 97.8; O2SAT 96
[2024-04-28 04:00] VITALS: BP 144/71; TEMP 96.7; O2SAT 96
[2024-04-28 07:10] LABS: BASO % 0.5 % (0.0-1.0); EOS # 0.2 10^3/uL (0.0-0.5); EOS % 2.4 % (0.0-3.0); HEMATOCRIT 28.4 % (36.0-47.0); HEMOGLOBIN 9.1 g/dl (12.0-15.5); LYMPH # 1.3 10^3/uL (1.5-5.0); LYMPH % 15.2 % (24.0-44.0); MEAN CORPUSCULAR HEMOGLOBIN 31.5 pg (27.0-33.0); MEAN CORPUSCULAR VOLUME 98.3 fl (80.0-96.0); MONO % 11.8 % (2.0-8.0); NEUTROPHILS # 5.9 10^3/uL (1.5-8.5); NEUTROPHILS % 69.3 % (36.0-66.0); PLATELET COUNT, AUTOMATED 273 10^3/uL (150-450); RED BLOOD COUNT 2.89 10^6/uL (4.00-5.40); WHITE BLOOD COUNT 8.5 10^3/uL (4.0-10.0)
[2024-04-28 07:41] LABS: CALCIUM LEVEL 10.1 MG/DL (8.3-10.6); CREATININE FOR GFR 2.99 MG/DL (0.55-1.30); POTASSIUM SERUM 4.8 MMOL/L (3.5-5.1)
[2024-04-28] MEDS: IPRATROPIUM 0.5MG/ALBUTEROL 2.5MG INH SOL UD 3ML (DUONEB) NEB SCH (08:09)
[2024-04-28 12:00] VITALS: TEMP 97.7; O2SAT 100
[2024-04-28 12:15] VITALS: BP 120/67
[2024-04-28 19:22] VITALS: BP 154/67; TEMP 96.2; O2SAT 95
[2024-04-28 20:00] VITALS: BP 137/92
[2024-04-29 04:00] VITALS: BP 137/63; TEMP 96.6; O2SAT 95
== END 2024-04-29 09:30 | disposition home or self-care (01) | DRG 95 ==
LOC: M PM&R 15:05
PROVIDERS: ADMIT Physical Medicine & Rehabilitation; ATTEND Physical Medicine & Rehabilitation
DX: G61.0 Guillain-Barre syndrome (principal); N18.4 Chronic kidney disease, stage 4 (severe); I50.32 Chronic diastolic (congestive) heart failure; I13.0 Hypertensive heart and chronic kidney disease with heart failure and stage 1 through stage 4 chronic kidney disease, or unspecified chronic kidney disease; F05 Delirium due to known physiological condition; J44.1 Chronic obstructive pulmonary disease with (acute) exacerbation; I27.20 Pulmonary hypertension, unspecified; K21.9 Gastro-esophageal reflux disease without esophagitis; M47.816 Spondylosis without myelopathy or radiculopathy, lumbar region; D63.8 Anemia in other chronic diseases classified elsewhere; I36.1 Nonrheumatic tricuspid (valve) insufficiency; E78.5 Hyperlipidemia, unspecified; R13.12 Dysphagia, oropharyngeal phase; R11.2 Nausea with vomiting, unspecified; M54.50 Low back pain, unspecified; H93.13 Tinnitus, bilateral; R25.1 Tremor, unspecified; H61.22 Impacted cerumen, left ear; R00.0 Tachycardia, unspecified; G89.29 Other chronic pain; I95.1 Orthostatic hypotension; R30.0 Dysuria; R27.0 Ataxia, unspecified; R04.0 Epistaxis; F41.9 Anxiety disorder, unspecified; R41.82 Altered mental status, unspecified; M81.0 Age-related osteoporosis without current pathological fracture; Z74.1 Need for assistance with personal care; Z74.09 Other reduced mobility; Z98.1 Arthrodesis status; Z90.49 Acquired absence of other specified parts of digestive tract; Z85.820 Personal history of malignant melanoma of skin; Z98.41 Cataract extraction status, right eye; Z98.42 Cataract extraction status, left eye; Z87.891 Personal history of nicotine dependence; Z79.899 Other long term (current) drug therapy

== ENCOUNTER → 2024-05-15 | Outpatient (REF) | payer MEDICARE, BC, OTHER ==
[~2024-05-15] MED LIST changes: +CALC200T15 PO; +COLA100C5 PO; +HYDR25TA87 PO; +OXYM05SP; +SENO8.6T5 PO; +SODIGEL; +Sodium Chloride Nasal Spray; +VENTAER INH
[2024-05-15 18:05] LABS: PERCENT SATURATION 18.8 % (13.2-45.0)
[2024-05-15 18:08] LABS: FERRITIN 696.3 NG/ML (7.3-270.7)
== END ==
LOC: M LAB REF 17:01
PROVIDERS: ATTEND Internal Medicine Nephrology
DX: D50.9 Iron deficiency anemia, unspecified (principal)

== ENCOUNTER 2024-06-22 11:16 | Emergency (ER) | payer MEDICARE, BC ==
[~2024-06-22] VITALS: Ht 149.9 cm; Wt 52.0 kg
[2024-06-22 12:31] LABS: BASO % 0.5 % (0.0-1.0); EOS % 0.5 % (0.0-3.0); HEMATOCRIT 34.2 % (36.0-47.0); HEMOGLOBIN 10.8 g/dl (12.0-15.5); LYMPH # 0.6 10^3/uL (1.5-5.0); LYMPH % 9.9 % (24.0-44.0); MEAN CORPUSCULAR HGB CONC 31.6 g/dl (32.0-36.5); MEAN CORPUSCULAR VOLUME 98.3 fl (80.0-96.0); MONO # 0.5 10^3/uL (0.0-0.8); MONO % 8.1 % (2.0-8.0); NEUTROPHILS # 4.6 10^3/uL (1.5-8.5); NEUTROPHILS % 80.8 % (36.0-66.0); PLATELET COUNT, AUTOMATED 273 10^3/uL (150-450); RED BLOOD COUNT 3.48 10^6/uL (4.00-5.40); WHITE BLOOD COUNT 5.7 10^3/uL (4.0-10.0)
[2024-06-22 12:52] LABS: OSMOLALITY SERUM 302 MOSM/KG (280-301)
[2024-06-22 13:01] LABS: THYROID STIMULATING HORMONE 2.417 uIU/ML (0.55-4.78)
[2024-06-22 13:04] LABS: ALBUMIN 3.4 G/DL (3.2-5.2); ALKALINE PHOSPHATASE 93 U/L (35-104); ALT/SGPT 22 U/L (7.0-40); AST/SGOT 51 U/L (<34); BILIRUBIN,DIRECT < 0.1 MG/DL (<0.4); BILIRUBIN,TOTAL 0.2 MG/DL (0.3-1.2); BLOOD UREA NITROGEN 33 MG/DL (9-23); CALCIUM LEVEL 9.4 MG/DL (8.3-10.6); CARBON DIOXIDE LEVEL 30 MMOL/L (20-31); CHLORIDE LEVEL 101 MMOL/L (98-107); CK-MB VALUE MASS 3.3 NG/ML (<3.6); CPK CREATINE PHOSPHOKINASE 234 U/L (34-145); CREATININE FOR GFR 2.74 MG/DL (0.55-1.30); GLUCOSE, FASTING 113 MG/DL (74-106); MB/CK RELATIVE INDEX 1.41 (< OR =4); POTASSIUM SERUM 5.6 MMOL/L (3.5-5.1); SODIUM LEVEL 139 MMOL/L (136-145); TOTAL PROTEIN 7.2 G/DL (5.7-8.2)
[2024-06-22] MEDS: LIDOCAINE 2% 5ML JELLY UROJET TOP ONE (13:15)
[2024-06-22 14:14] LABS: KETONE, URINE AUTO RFX NEGATIVE (NEGATIVE); LEUKOCYTE ESTERASE UR AUTO RFX NEGATIVE (NEGATIVE); NITRITE, URINE AUTO RFX NEGATIVE (NEGATIVE); RBC, URINE AUTO RFX 1 /HPF (0-3); SQUAM EPITHELIAL CELL UR AURFX 0 /HPF (0-6); WBC, URINE AUTO RFX 1 /HPF (0-3)
[2024-06-22 15:15] VITALS: BP 153/72; O2SAT 97
[2024-06-22 15:23] VITALS: TEMP 97.6
== END 2024-06-22 15:30 | disposition home or self-care (01) ==
LOC: M ED 11:16
DX: Z00.01 Encounter for general adult medical examination with abnormal findings (principal); R94.31 Abnormal electrocardiogram [ECG] [EKG]; I50.22 Chronic systolic (congestive) heart failure; I11.0 Hypertensive heart disease with heart failure; E78.00 Pure hypercholesterolemia, unspecified; J44.9 Chronic obstructive pulmonary disease, unspecified; N18.9 Chronic kidney disease, unspecified; F10.10 Alcohol abuse, uncomplicated; Z79.1 Long term (current) use of non-steroidal anti-inflammatories (NSAID); Z79.51 Long term (current) use of inhaled steroids; Z79.899 Other long term (current) drug therapy; Z79.810 Long term (current) use of selective estrogen receptor modulators (SERMs)

== ENCOUNTER → 2024-06-30 | Outpatient (REF) | payer MEDICARE, BC ==
[~2024-06-30] MED LIST changes: +ALBU8.5H INH; +ATOR40TA75 PO; +FAMO1TAB11 PO; +METO1TAB32 PO; +PRES10CA2 PO; +THERTAB52 PO; +TUMS500C PO
[2024-06-30 18:51] LABS: PERCENT SATURATION 7.2 % (13.2-45.0)
[2024-06-30 18:54] LABS: FERRITIN 527.3 NG/ML (7.3-270.7)
== END ==
LOC: M LAB REF 17:35
PROVIDERS: ATTEND Internal Medicine Nephrology
DX: D50.9 Iron deficiency anemia, unspecified (principal)

== ENCOUNTER 2024-07-03 18:33 | Inpatient (IN) | payer MEDICARE, BC ==
[~2024-07-03] VITALS: Ht 152.4 cm; Wt 58.3 kg
[~2024-07-03 18:33] MED LIST changes: -ALBU8.5H INH; -ATOR40TA75 PO; -FAMO1TAB11 PO; -METO1TAB32 PO; -PRES10CA2 PO; -THERTAB52 PO; -TUMS500C PO
[2024-07-03 19:58] LABS: BASO % 0.2 % (0.0-1.0); EOS % 0.1 % (0.0-3.0); HEMATOCRIT 29.8 % (36.0-47.0); HEMOGLOBIN 9.9 g/dl (12.0-15.5); LYMPH # 0.9 10^3/uL (1.5-5.0); LYMPH % 7.7 % (24.0-44.0); MEAN CORPUSCULAR HEMOGLOBIN 31.2 pg (27.0-33.0); MEAN CORPUSCULAR HGB CONC 33.2 g/dl (32.0-36.5); MONO # 0.9 10^3/uL (0.0-0.8); MONO % 7.5 % (2.0-8.0); NEUTROPHILS # 10.3 10^3/uL (1.5-8.5); NEUTROPHILS % 84.1 % (36.0-66.0); PLATELET COUNT, AUTOMATED 306 10^3/uL (150-450); RED BLOOD COUNT 3.17 10^6/uL (4.00-5.40); WHITE BLOOD COUNT 12.3 10^3/uL (4.0-10.0)
[2024-07-03 20:21] LABS: CK-MB VALUE MASS 3.9 NG/ML (<3.6)
[2024-07-03 20:23] LABS: BILIRUBIN,TOTAL 0.7 MG/DL (0.3-1.2); CALCIUM LEVEL 9.3 MG/DL (8.3-10.6); CREATININE FOR GFR 2.41 MG/DL (0.55-1.30); GLOMERULAR FILTRATION RATE 19.8 (>32); MB/CK RELATIVE INDEX 1.4 (< OR =4); POTASSIUM SERUM 4.1 MMOL/L (3.5-5.1); TOTAL PROTEIN 7.1 G/DL (5.7-8.2)
[2024-07-03] MEDS: ACETAMINOPHEN *IV* 1,000 MG in IV 1 EA IV ONE (21:05)
[2024-07-03] MEDS: CEFEPIME HCL 2 GM in DEXTROSE 5% (D5W) ADV/MINI-BAG 50 ML IV ONE (21:21)
[2024-07-03 21:34] LABS: KETONE, URINE AUTO RFX NEGATIVE (NEGATIVE); LEUKOCYTE ESTERASE UR AUTO RFX NEGATIVE (NEGATIVE); MUCUS, URINE RFX SMALL (NEGATIVE); NITRITE, URINE AUTO RFX NEGATIVE (NEGATIVE); RBC, URINE AUTO RFX 2 /HPF (0-3); SQUAM EPITHELIAL CELL UR AURFX 0 /HPF (0-6); WBC, URINE AUTO RFX 0 /HPF (0-3)
[2024-07-03] MEDS ORDERED: PIPERACILLIN/TAZOBACTAM SOD 3.375 GM in DEXTROSE 5% (D5W) ADV/MINI-BAG 50 ML IV SCH (23:40)
[2024-07-03] MEDS ORDERED: VANCOMYCIN HCL 1,000 MG, VIAL MATE ADAPTER 1 EACH in NS 250 ML IV SCH (23:40)
[2024-07-03] MEDS ORDERED: THERTAB52 PO (23:46)
[2024-07-03] MEDS ORDERED: ATOR40TA75 PO (23:46)
[2024-07-03] MEDS ORDERED: HYDR25TA87 PO (23:46)
[2024-07-03] MEDS ORDERED: METO1TAB32 PO (23:46)
[2024-07-03] MEDS ORDERED: TUMS500C PO (23:46)
[2024-07-03] MEDS ORDERED: FAMO1TAB11 PO (23:46)
[2024-07-03] MEDS ORDERED: PRES10CA2 PO (23:46)
[2024-07-03] MEDS ORDERED: ALBU8.5H INH (23:46)
[2024-07-03] MEDS ORDERED: MED REC IN PROGRESS XX SCH (23:50)
[2024-07-04] MEDS: VANCOMYCIN HCL 1,000 MG, VIAL MATE ADAPTER 1 EACH in NS 250 ML IV ONE (01:01)
[2024-07-04 01:23] LABS: PHOSPHORUS LEVEL 2.7 MG/DL (2.4-5.1)
[2024-07-04 01:30] VITALS: BP 136/103; TEMP 97.7; O2SAT 97
[2024-07-04] MEDS: PIPERACILLIN/TAZOBACTAM SOD 2.25 GM in DEXTROSE 5% (D5W) ADV/MINI-BAG 50 ML IV SCH (02:47)
[2024-07-04 04:18] VITALS: BP 119/61; TEMP 98.1; O2SAT 98
[2024-07-04] MEDS ORDERED: ALBUTEROL 90 MCG/ACT 8GM HFA INHALER INH PRN (04:35)
[2024-07-04] MEDS: HEPARIN SOD (PORCINE) 5000UNITS/ML 1ML VIAL/SYRINGE SC SCH (05:11)
[2024-07-04] MEDS ORDERED: VANCOMYCIN INTERMITTENT/PULSE DOSING BY CLINICAL PHARMACIST PER DOSING PROTOCOL XX SCH (06:00)
[2024-07-04] MEDS: FLUTICASONE HFA 110MCG 12GM INHALER INH SCH (07:27)
[2024-07-04 07:46] LABS: HEMOGLOBIN 9.3 g/dl (12.0-15.5); MEAN CORPUSCULAR HEMOGLOBIN 31.2 pg (27.0-33.0); MEAN CORPUSCULAR HGB CONC 33.2 g/dl (32.0-36.5); PLATELET COUNT, AUTOMATED 282 10^3/uL (150-450); RED BLOOD COUNT 2.98 10^6/uL (4.00-5.40); WHITE BLOOD COUNT 9.4 10^3/uL (4.0-10.0)
[2024-07-04 08:00] LABS: HEMOGLOBIN A1c 5.4 % (4.0-6.0)
[2024-07-04 08:19] LABS: CALCIUM LEVEL 8.7 MG/DL (8.3-10.6); CREATININE FOR GFR 2.59 MG/DL (0.55-1.30); GLOMERULAR FILTRATION RATE 18.2 (>32); POTASSIUM SERUM 4.1 MMOL/L (3.5-5.1)
[2024-07-04 08:24] LABS: FOLATE 18.21 NG/ML (>5.4)
[2024-07-04 08:28] LABS: PROCALCITONIN 2.13 ng/ml
[2024-07-04 08:39] LABS: C REACTIVE PROTEIN QUANTITATIV 14.84 MG/DL (<1.0)
[2024-07-04] MEDS ORDERED: CARVedilol 6.25 MG TAB PO SCH (09:00)
[2024-07-04] MEDS: CALCIUM CARBONATE 500 MG CHEW U/D PO SCH (09:07)
[2024-07-04] MEDS: GABAPENTIN 100 MG CAP PO SCH (09:08)
[2024-07-04] MEDS: **hydrALAZINE HCL** 25 MG TAB PO SCH (09:08)
[2024-07-04] MEDS: METOPROLOL SUCC *XL* 25MG TAB (TopROL *XL*) PO SCH (09:08)
[2024-07-04] MEDS: FAMOTIDINE 20 MG TAB PO SCH (09:08)
[2024-07-04 12:00] VITALS: BP 107/52; TEMP 98.5; O2SAT 96
[2024-07-04] MEDS ORDERED: VANCOMYCIN HCL 500 MG in DEXTROSE 5% (D5W) MINI-BAG PLU 100 ML IV SCH (14:00)
[2024-07-04] MEDS: cefTRIAXone SOD 2 GM in DEXTROSE 5% (D5W) ADV/MINI-BAG 50 ML IV SCH (16:43)
[2024-07-04 20:10] VITALS: BP 105/66; TEMP 97.9; O2SAT 96
[2024-07-04] MEDS: ACETAMINOPHEN 325 MG TAB PO PRN (21:10)
[2024-07-04] MEDS: NORTRIPTYLINE 25 MG CAP PO SCH (21:10)
[2024-07-05] VITALS (8 sets, daily range): BP systolic 98–135; BP diastolic 53–68; TEMP 97.2–98.1; O2SAT 95–98
[2024-07-05 05:50] LABS: BASO # 0.1 10^3/uL (0.0-0.2); BASO % 0.6 % (0.0-1.0); EOS # 0.2 10^3/uL (0.0-0.5); EOS % 2.5 % (0.0-3.0); HEMATOCRIT 27.5 % (36.0-47.0); HEMOGLOBIN 9.1 g/dl (12.0-15.5); LYMPH # 1.6 10^3/uL (1.5-5.0); LYMPH % 18.1 % (24.0-44.0); MEAN CORPUSCULAR HEMOGLOBIN 30.8 pg (27.0-33.0); MEAN CORPUSCULAR HGB CONC 33.1 g/dl (32.0-36.5); MEAN CORPUSCULAR VOLUME 93.2 fl (80.0-96.0); MONO % 11.2 % (2.0-8.0); NEUTROPHILS % 67.2 % (36.0-66.0); PLATELET COUNT, AUTOMATED 305 10^3/uL (150-450); RED BLOOD COUNT 2.95 10^6/uL (4.00-5.40); WHITE BLOOD COUNT 8.9 10^3/uL (4.0-10.0)
[2024-07-05 06:21] LABS: CALCIUM LEVEL 8.9 MG/DL (8.3-10.6); CREATININE FOR GFR 2.5 MG/DL (0.55-1.30); POTASSIUM SERUM 4.2 MMOL/L (3.5-5.1)
[2024-07-05] MEDS: ATORVASTATIN 20 MG TAB PO SCH (07:51)
[2024-07-05] MEDS ORDERED: MIDAZOLAM INJ 2MG/2ML VIAL As Ordered ONE (16:57)
[2024-07-05] MEDS ORDERED: fentaNYL 100 MCG/2 ML INJECTION As Ordered ONE (16:57)
[2024-07-05] MEDS ORDERED: propofoL 200 MG/20 ML VIAL As Ordered ONE (16:57)
[2024-07-05] MEDS ORDERED: LIDOCAINE 2% 100MG/5ML SDV (FOR ANES.) As Ordered ONE (16:57)
[2024-07-05] MEDS: CETACAINE SPRAY 5GM As Ordered ONE (17:28)
[2024-07-05] MEDS: cefTRIAXone SOD 1GM VIAL As Ordered ONE (17:37)
[2024-07-06 00:01] VITALS: BP 128/61; TEMP 97.3; O2SAT 95
[2024-07-06 01:02] VITALS: BP 128/72; TEMP 97.3; O2SAT 93
[2024-07-06 04:37] VITALS: BP 127/71; TEMP 98.1; O2SAT 97
[2024-07-06 06:17] LABS: BASO # 0.1 10^3/uL (0.0-0.2); BASO % 0.6 % (0.0-1.0); EOS # 0.2 10^3/uL (0.0-0.5); EOS % 2.3 % (0.0-3.0); HEMATOCRIT 27.9 % (36.0-47.0); HEMOGLOBIN 9.2 g/dl (12.0-15.5); LYMPH # 1.3 10^3/uL (1.5-5.0); LYMPH % 16.1 % (24.0-44.0); MEAN CORPUSCULAR VOLUME 93.9 fl (80.0-96.0); MONO # 0.9 10^3/uL (0.0-0.8); MONO % 10.3 % (2.0-8.0); NEUTROPHILS # 5.8 10^3/uL (1.5-8.5); NEUTROPHILS % 70.1 % (36.0-66.0); PLATELET COUNT, AUTOMATED 331 10^3/uL (150-450); RED BLOOD COUNT 2.97 10^6/uL (4.00-5.40); WHITE BLOOD COUNT 8.2 10^3/uL (4.0-10.0)
[2024-07-06 06:45] LABS: CREATININE FOR GFR 2.56 MG/DL (0.55-1.30); GLOMERULAR FILTRATION RATE 18.4 (>32); MAGNESIUM LEVEL 2.1 MG/DL (1.8-2.4); POTASSIUM SERUM 4.5 MMOL/L (3.5-5.1)
[2024-07-06] MEDS: AMOXICILLIN 500 MG CAP PO SCH (11:00)
[2024-07-06 12:00] VITALS: BP 121/63; TEMP 97.9; O2SAT 98
[2024-07-06] MEDS: cefTRIAXone SOD 2 GM in DEXTROSE 5% (D5W) ADV/MINI-BAG 50 ML IV ONE (15:25)
[2024-07-06 15:30] LABS: C REACTIVE PROTEIN QUANTITATIV 6.47 MG/DL (<1.0)
[2024-07-06 15:38] LABS: PROCALCITONIN 0.96 ng/ml
[2024-07-06 15:53] VITALS: BP 122/63
[2024-07-06] MEDS ORDERED: PROBCAP14 PO (16:23)
[2024-07-06] MEDS ORDERED: AMOX500T PO (16:23)
[2024-07-07] MEDS ORDERED: cefTRIAXone SOD 2 GM in DEXTROSE 5% (D5W) ADV/MINI-BAG 50 ML IV SCH (15:00)
== END 2024-07-06 17:30 | disposition home or self-care (01) | DRG 872 ==
LOC: M ED 18:33 → M ED INP 23:37 → M MS5PR 07-04 01:28
PROVIDERS: ADMIT Student in an Organized Health Care Education/Training Program; ATTEND Internal Medicine
PROC: B246ZZZ Ultrasonography of Right and Left Heart (ICD-10-PCS; principal; 2024-07-04)
PROC: B246ZZ4 Ultrasonography of Right and Left Heart, Transesophageal (ICD-10-PCS; 2024-07-05)
DX: A40.8 Other streptococcal sepsis (principal); I50.32 Chronic diastolic (congestive) heart failure; I13.0 Hypertensive heart and chronic kidney disease with heart failure and stage 1 through stage 4 chronic kidney disease, or unspecified chronic kidney disease; N18.4 Chronic kidney disease, stage 4 (severe); M48.54XA Collapsed vertebra, not elsewhere classified, thoracic region, initial encounter for fracture; I27.20 Pulmonary hypertension, unspecified; J44.9 Chronic obstructive pulmonary disease, unspecified; K21.9 Gastro-esophageal reflux disease without esophagitis; E78.5 Hyperlipidemia, unspecified; M62.81 Muscle weakness (generalized); R33.9 Retention of urine, unspecified; G62.9 Polyneuropathy, unspecified; I35.0 Nonrheumatic aortic (valve) stenosis; Z66 Do not resuscitate; D50.9 Iron deficiency anemia, unspecified; R53.1 Weakness; R29.6 Repeated falls; Z90.49 Acquired absence of other specified parts of digestive tract; Z87.891 Personal history of nicotine dependence; Z79.899 Other long term (current) drug therapy; Z85.820 Personal history of malignant melanoma of skin

== ENCOUNTER → 2024-07-25 | Outpatient (CLI) | payer MEDICARE, BC ==
[~2024-07-25] MED LIST changes: +ALBU8.5H INH; +AMOX500T PO; +ATOR40TA75 PO; +FAMO1TAB11 PO; +METO1TAB32 PO; +PRES10CA2 PO; +PROBCAP14 PO; +THERTAB52 PO; +TUMS500C PO
== END ==
LOC: M PLALAB 10:20
PROVIDERS: ATTEND Internal Medicine Infectious Disease
DX: A49.1 Streptococcal infection, unspecified site (principal); J40 Bronchitis, not specified as acute or chronic; R06.09 Other forms of dyspnea
CPT/HCPCS: 71046; G0463

== ENCOUNTER 2024-10-23 10:27 | Emergency (ER) | payer MEDICARE, BC ==
[~2024-10-23] VITALS: Ht 152.4 cm; Wt 51.0 kg
[~2024-10-23 10:27] MED LIST changes: +SENN-225 PO; -SENO8.6T5 PO
[2024-10-23] MEDS: ACETAMINOPHEN 325 MG TAB PO ONE (11:58)
[2024-10-23 12:14] LABS: BASO # 0.0 10^3/uL (0.0-0.2); BASO % 0.2 % (0.0-1.0); EOS # 0.2 10^3/uL (0.0-0.5); EOS % 1.8 % (0.0-3.0); LYMPH # 0.8 10^3/uL (1.5-5.0); LYMPH % 9.7 % (24.0-44.0); MONO # 0.5 10^3/uL (0.0-0.8); MONO % 5.5 % (2.0-8.0); NEUTROPHILS # 6.8 10^3/uL (1.5-8.5); NEUTROPHILS % 82.4 % (36.0-66.0); PLATELET COUNT, AUTOMATED 314 10^3/uL (150-450)
[2024-10-23 12:42] LABS: CALCIUM LEVEL 9.8 MG/DL (8.3-10.6); CARBON DIOXIDE LEVEL 28.0 MMOL/L (20-31); CHLORIDE LEVEL 105.0 MMOL/L (98-107); CK-MB VALUE MASS 1.2 NG/ML (<3.6); CPK CREATINE PHOSPHOKINASE 86.0 U/L (34-145); CREATININE FOR GFR 2.35 MG/DL (0.55-1.30); GLOMERULAR FILTRATION RATE 20.4 (>32); MB/CK RELATIVE INDEX 1.39 (< OR =4); POTASSIUM SERUM 4.5 MMOL/L (3.5-5.1); SODIUM LEVEL 143.0 MMOL/L (136-145)
[2024-10-23 13:19] LABS: CK-MB VALUE MASS 1.7 NG/ML (<3.6)
[2024-10-23 13:20] LABS: CPK CREATINE PHOSPHOKINASE 92.0 U/L (34-145); MB/CK RELATIVE INDEX 1.84 (< OR =4)
[2024-10-23] MEDS ORDERED: HOME MED LIST COMPLETE! XX SCH (13:40)
[2024-10-23 14:00] VITALS: BP 164/76; TEMP 98; O2SAT 99
[2024-10-23] MEDS ORDERED: METH-1164 PO (14:05)
== END 2024-10-23 14:17 | disposition home or self-care (01) ==
LOC: M ED 10:27
DX: M62.830 Muscle spasm of back (principal); N18.4 Chronic kidney disease, stage 4 (severe); D63.1 Anemia in chronic kidney disease; I51.7 Cardiomegaly; E78.5 Hyperlipidemia, unspecified; J45.909 Unspecified asthma, uncomplicated; M47.896 Other spondylosis, lumbar region; I10 Essential (primary) hypertension; Z79.52 Long term (current) use of systemic steroids; Z79.02 Long term (current) use of antithrombotics/antiplatelets; Z79.899 Other long term (current) drug therapy; Z79.1 Long term (current) use of non-steroidal anti-inflammatories (NSAID)